=== PATIENT | female | born 1955 | race Caucasian/White ===

== ENCOUNTER → 2017-03-20 | Day surgery (SDC) | payer OTHER ==
[~2017-03-20] VITALS: Ht 175.3 cm; Wt 83.5 kg
[~2017-03-20] MED LIST: ASPIRIN EC81 MG PO; CALAN80 MG PO; CPAP INH; DESYREL100 MG PO; FLEXERIL10 MG PO; FLONASE 50 MCG/16 GM NOSE; GLUCOSAMINE &1 EACH PO; IBUPROFEN800 MG PO; LIPITOR10 MG PO; LOVASTATIN40 MG PO; MOBIC15 MG PO; OMEPRAZOLE20 M1 PO; PHENERGAN25 M1 PO; PRIMIDONE50 MG PO; PROTONIX40 MG PO; TOPAMAX25 MG PO; ULTRAM50 MG PO; ZANTAC (NON-FO150 MG PO; ZOLOFT100 MG PO
== END | disposition disaster alternative care site (69) ==
LOC: GPOC 03-12 10:00
PROC: 0DB38ZX Excision of Lower Esophagus, Via Natural or Artificial Opening Endoscopic, Diagnostic (ICD-10-PCS; principal; 2017-03-20)
PROC: 0DB68ZX Excision of Stomach, Via Natural or Artificial Opening Endoscopic, Diagnostic (ICD-10-PCS; 2017-03-20)
DX: K31.7 Polyp of stomach and duodenum (principal); K22.70 Barrett's esophagus without dysplasia; K21.9 Gastro-esophageal reflux disease without esophagitis; I10 Essential (primary) hypertension; E78.5 Hyperlipidemia, unspecified; Z79.82 Long term (current) use of aspirin; Z79.899 Other long term (current) drug therapy; Z88.0 Allergy status to penicillin; Z88.8 Allergy status to other drugs, medicaments and biological substances; Z90.710 Acquired absence of both cervix and uterus; Z98.890 Other specified postprocedural states
CPT/HCPCS: J2001; J7030